=== PATIENT | male | born 1980 | race Caucasian/White ===

== ENCOUNTER 2019-05-18 13:20 | Outpatient (CLI) | payer BC ==
--- NOTE | 2019-05-18 14:51 | MRI ---
Brain MRI with and without contrast: 05/18/2019 COMPARISON: None HISTORY: Headaches TECHNIQUE: Multiplanar multisequence MR imaging of the brain obtained with and without contrast FINDINGS: The diffusion weighted imaging demonstrates no evidence for acute infarction. The axial gradient echo imaging demonstrates no evidence for intracranial hemorrhage. There is a T2/FLAIR hyperintense lesion within the periventricular white matter abutting the posterio r aspect of the body of the right lateral ventricle. It demonstrates a linear configuration in the craniocaudal dimension on sagittal imaging, measuring 1.2 x 1.4 x 0.8 cm. There is no associated enha ncement. No significant additional abnormal white matter signal intensity. No abnormal signal noted within the brainstem or posterior fossa. No significant paranasal sinus opacification or mastoid air cell opacification. Arterial flow voids a t the axial level of the skull base demonstrate patency. The left vertebral artery is hypoplastic and probably terminates in the PICA. The postcontrast imaging demonstrates no abnormal enhancement within the brain parenchyma. IMPRESSION: Nonspecific nonenhancing T2/FLAIR hyperintense lesion within the periventricular white ma tter on the right. This could represent the sequela of prior insult, a solitary demyelinating plaque, or a low-grade glioma. Recommend short-term follow-up contrast enhanced brain MRI in 3 months .
== END 2019-05-18 13:21 | disposition home or self-care (01) ==
LOC: TBSIIMAG 13:20
PROVIDERS: ATTEND Psychiatry & Neurology Neurology
DX: R51 Headache (principal); G93.9 Disorder of brain, unspecified
CPT/HCPCS: 70553